=== PATIENT | female | born 1985 | race African-American/Black ===

== ENCOUNTER 2020-08-13 13:18 | Outpatient (CLI) | payer OTHER ==
[2020-08-14 19:00] LABS: SARS-CoV-2 PCR by NAA Not Detected (NotDetected)
== END 2020-08-13 13:19 | disposition home or self-care (01) ==
LOC: LABBT 13:18
PROVIDERS: ATTEND Neurological Surgery
DX: Z01.812 Encounter for preprocedural laboratory examination (principal); M54.16 Radiculopathy, lumbar region; Z20.822 Contact with and (suspected) exposure to COVID-19
CPT/HCPCS: U0003; U0005

== ENCOUNTER 2020-08-18 06:07 | Day surgery (SDC) | payer OTHER ==
[2020-08-17 11:12] VITALS: BMI 28.8
[2020-08-18] MEDS ORDERED: Bupivacaine PF 0.5% 30 ML VIAL ONE (06:18)
[2020-08-18] MEDS ORDERED: EPINEPHrine 1 MG/ML AMP ONE (06:18)
[2020-08-18] MEDS ORDERED: Thrombin 5000 UNITS/5 ML VIAL ONE (06:18)
[2020-08-18] MEDS ORDERED: Fentanyl 250 MCG/5 ML VIAL ONE (06:53)
[2020-08-18] MEDS ORDERED: Midazolam HCl 2 mg/2 ml Vial ONE (06:56)
[2020-08-18] MEDS ORDERED: Rocuronium Bromide 10 MG/ML (10ML VIAL) ONE (07:13)
[2020-08-18] MEDS ORDERED: Ondansetron PF 4 MG/2 ML Vial ONE (07:13)
[2020-08-18] MEDS ORDERED: Lidocaine 1% PF 5 ML VIAL ONE (07:13)
[2020-08-18] MEDS ORDERED: Ketorolac Tromethamine 30 MG/ML VIAL ONE (07:13)
[2020-08-18] MEDS ORDERED: Dexamethasone 20 MG/5 ML VIAL ONE (07:13)
[2020-08-18] MEDS ORDERED: PROPOFOL 200 MG/20 ML VIAL ONE (07:13)
[2020-08-18] MEDS ORDERED: SUGAMMADEX SODIUM 200 MG/2 ML VIAL ONE (08:09)
[2020-08-18] MEDS ORDERED: Fentanyl 100 MCG/2 ML VIAL ONE ×2 (08:41→09:08)
[2020-08-18] MEDS ORDERED: Promethazine HCl 25 MG/ML VIAL ONE (08:49)
[2020-08-18] MEDS ORDERED: diphenhydrAMINE 50 MG/ML VIAL ONE (09:21)
[2020-08-18] MEDS ORDERED: HYDROcodone/Acetaminophen 5/325 mg Tablet ONE (11:05)
== END 2020-08-18 11:41 | disposition home or self-care (01) ==
LOC: SDC 06:07
PROVIDERS: ATTEND Neurological Surgery
PROC: 01NB0ZZ Release Lumbar Nerve, Open Approach (ICD-10-PCS; principal; 2020-08-18)
DX: M51.16 Intervertebral disc disorders with radiculopathy, lumbar region (principal); M48.061 Spinal stenosis, lumbar region without neurogenic claudication; G89.29 Other chronic pain; M19.90 Unspecified osteoarthritis, unspecified site; J45.909 Unspecified asthma, uncomplicated; Z79.899 Other long term (current) drug therapy
CPT/HCPCS: 76000; J0171; J0690; J1100; J1200; J1885; J2250; J2405; J2550; J2704; J3010; S0020